=== PATIENT | male | born 2000 | race Caucasian/White ===

== ENCOUNTER 2022-03-27 18:58 | Emergency (ER) | payer SELFPAY ==
[~2022-03-27] VITALS: Ht 185.4 cm; Wt 122.5 kg
[2022-03-27 20:53] LABS: BASO % 0.6 % (0.0-1.0); EOS # 0.1 10*3/uL (0.0-0.4); EOS % 0.7 % (1.0-4.0); HEMATOCRIT 43.8 % (42.0-52.0); LYMPH # 1.6 10*3/uL (1.3-4.4); LYMPH % 22.3 % (27.0-41.0); MEAN CELL VOLUME 82.8 fl (80.0-94.0); MEAN CORPUSCULAR HGB 29.5 pg (27.0-31.0); MEAN CORPUSCULAR HGB CONC 35.6 g/dl (33.0-37.0); MEAN PLATELET VOLUME 9.8 fl (9.6-12.3); MONO # 0.9 10*3/uL (0.1-1.0); NEUT # 4.4 10*3/uL (2.3-7.9); NEUT % 63.1 % (47.0-73.0); PLATELET COUNT AUTOMATED 251 10*3/uL (130-400); RED BLOOD COUNT 5.29 10*6/uL (4.50-5.90); RED CELL DISTRI WIDTH 11.9 % (0-14.5); WHITE BLOOD COUNT 6.9 10*3/uL (4.8-10.8)
[2022-03-27 21:09] LABS: ALKALINE PHOSPHATASE 97 U/L (45-117); BUN 18 mg/dl (7-24); CHLORIDE 103 mmol/L (98-107); CREATININE 1.12 mg/dL (0.70-1.30); LIPASE 75 U/L (73-393); POTASSIUM 3.3 mmol/L (3.5-5.1); SGOT/AST 24 IU/L (3-35); SGPT/ALT 39 U/L (12-78); SODIUM 134 mmol/L (136-145); TOTAL PROTEIN 8.7 gm/dL (6.4-8.2)
[2022-03-27 21:18] LABS: BILIRUBIN 2+ (Negative); BLOOD Negative (Negative); CLARITY Clear (Clear); COLOR Dark Yellow (Yellow); GLUCOSE Negative (Negative); KETONE 2+ (Negative); LEUKO ESTERASE Negative (Negative); NITRITE Negative (Negative); PH 5.5 (4.5-8.0); SPECIFIC GRAVITY >= 1.030 (1.001-1.030)
[2022-03-27 21:23] LABS: BACTERIA TRACE; EPITHELIAL CELLS 0-2; HYALINE CAST 0-2; MUCOUS 2+; WBC 0-2 wbc/hpf (0-5)
== END 2022-03-27 22:44 | disposition home or self-care (01) ==
LOC: ED 18:58
PROVIDERS: Emergency Medicine
DX: B34.9 Viral infection, unspecified (principal); Z20.822 Contact with and (suspected) exposure to COVID-19; R11.10 Vomiting, unspecified